=== PATIENT | male | born 1970 | race Caucasian/White ===

== ENCOUNTER 2020-10-31 08:56 | Day surgery (SDC) | payer BC, OTHER ==
[~2020-10-31] VITALS: Ht 172.7 cm; Wt 68.3 kg
--- NOTE | 2020-10-31 09:22 | NUR ---
10/31/20 0922 Kelsey Grullon 1 TRY RIGHT HAND VALVES
== END 2020-10-31 11:00 | disposition home or self-care (01) ==
LOC: ORSCSDS 08:56
PROVIDERS: Student in an Organized Health Care Education/Training Program
PROC: 0DB58ZX Excision of Esophagus, Via Natural or Artificial Opening Endoscopic, Diagnostic (ICD-10-PCS; principal; 2020-10-31 10:30)
DX: R13.10 Dysphagia, unspecified (principal); C15.5 Malignant neoplasm of lower third of esophagus; R63.4 Abnormal weight loss; E78.5 Hyperlipidemia, unspecified; F17.210 Nicotine dependence, cigarettes, uncomplicated; Z79.899 Other long term (current) drug therapy
CPT/HCPCS: 88305; 88360; J2250; J2704; J7120

== ENCOUNTER 2021-02-04 12:56 | Emergency (ER) | payer BC, OTHER ==
[~2021-02-04] VITALS: Ht 170.2 cm; Wt 59.9 kg
== END 2021-02-04 15:45 | disposition left against medical advice (07) ==
LOC: ER 12:56
DX: R21 Rash and other nonspecific skin eruption (principal); Z53.21 Procedure and treatment not carried out due to patient leaving prior to being seen by health care provider
CPT/HCPCS: 99282

== ENCOUNTER 2022-11-12 05:15 | Day surgery (SDC) | payer OTHER | END 2022-11-12 16:20 | disposition home or self-care (01) | LOC: ORSCSDS 05:15 | DX: Z12.11 Encounter for screening for malignant neoplasm of colon (principal); K21.9 Gastro-esophageal reflux disease without esophagitis; Z53.9 Procedure and treatment not carried out, unspecified reason | CPT/HCPCS: J2704; J7120 ==

== ENCOUNTER 2023-03-21 09:24 | Day surgery (SDC) | payer OTHER ==
[~2023-03-21] VITALS: Ht 172.7 cm; Wt 63.0 kg
[2023-03-21 11:18] VITALS: BP 89/71
== END 2023-03-21 11:15 | disposition home or self-care (01) ==
LOC: ORSCSDS 09:24
PROVIDERS: Internal Medicine Gastroenterology
PROC: 0D758ZZ Dilation of Esophagus, Via Natural or Artificial Opening Endoscopic (ICD-10-PCS; principal; 2023-03-21 12:00)
PROC: 0DB48ZX Excision of Esophagogastric Junction, Via Natural or Artificial Opening Endoscopic, Diagnostic (ICD-10-PCS; principal; 2023-03-21 12:00)
DX: R13.10 Dysphagia, unspecified (principal); Z85.01 Personal history of malignant neoplasm of esophagus; K21.00 Gastro-esophageal reflux disease with esophagitis, without bleeding; F17.210 Nicotine dependence, cigarettes, uncomplicated; Z79.899 Other long term (current) drug therapy
CPT/HCPCS: 88305; 88312; C1726; J2250; J2704; J7120